=== PATIENT | female | born 1995 | race Caucasian/White ===

== ENCOUNTER 2017-03-05 13:17 | Day surgery (SDC) | payer OTHER ==
[~2017-03-05] VITALS: Ht 157.6 cm; Wt 65.0 kg
[~2017-03-05 13:17] MED LIST: IBU400 MG PO; PHENERGAN 25 TA25 MG PO
[2017-03-05] MEDS ORDERED: MIRENA52 MG IY (13:54)
[2017-03-05 13:58] VITALS: BP 100/57; PULSE 61; TEMP 98.8
[2017-03-05 14:29] LABS: HEMATOCRIT 36.8 % (37.0-47.0); HEMOGLOBIN 12.3 g/dl (12.5-16.0); MEAN CELL VOLUME 91 fl (80.0-100.0); MEAN CORPUSCULAR HEMOGLOBIN 30 pg (27.0-31.0); MEAN CORPUSCULAR HGB CONC 33 g/dl (33.0-37.0); MEAN PLATELET VOLUME 11.4 fl (7.4-10.4); PLATELET COUNT 317 K/mm3 (130-400); RED BLOOD COUNT 4.05 M/mm3 (4.10-5.30); WHITE BLOOD COUNT 6.1 K/mm3 (4.8-10.8)
[2017-03-05 15:13] LABS: CALCIUM 9.8 mg/dL (8.4-10.2); CREATININE, serum 0.85 mg/dL (0.52-1.25); POTASSIUM 4.4 mmol/L (3.4-5.0)
[2017-03-05 15:17] VITALS: BP 106/67; PULSE 62
[2017-03-05 16:45] VITALS: BP 103/66; PULSE 76; TEMP 98.8
[2017-03-05 17:00] VITALS: BP 106/66; PULSE 76; TEMP 98.8
[2017-03-05 17:15] VITALS: BP 108/63; PULSE 63; TEMP 98.8
== END 2017-03-05 17:50 | disposition home or self-care (01) ==
LOC: COL.CAR 13:17
PROVIDERS: Internal Medicine Interventional Cardiology
DX: Z45.09 Encounter for adjustment and management of other cardiac device (principal)
CPT/HCPCS: J0690; J2250; J3010